=== PATIENT | female | born 1970 | race Caucasian/White ===

== ENCOUNTER 2020-06-13 13:13 | Emergency (ER) | payer OTHER ==
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
--- NOTE | 2020-06-14 07:45 | CT ---
Head CT Technique: Multiple axial sections through the brain were obtained. Intravenous contrast was not utilized. Reconstructed coronal and sagittal images were obtained. Comparison: No prior intracranial imaging is available. Findings: Ventricles along with basal cisterns and sulci over the convexities appear within normal limits for the patient's age. No abnormal parenchymal densities are seen. No evidence of intracranial hemorrhage. No midline shift or mass-effect is seen. Visualized paranasal sinuses and mastoid sinuses show nothing acute. Nondisplaced left sided occipital bone fracture is noted. Impression: 1. Nondisplaced occipital bone fracture. 2. No other acute abnormality is appreciated on noncontrast head CT exam. Diagnostic code #3 I disagree with preliminary report from [facility] (nondisplaced left occipital fracture), finalized on 06/13/20, 3:40 PM CDT
== END 2020-06-13 15:30 | disposition home or self-care (01) ==
LOC: JD.ED 13:13
DX: S09.90XA Unspecified injury of head, initial encounter (principal); Z91.048 Other nonmedicinal substance allergy status; V86.99XA Unspecified occupant of other special all-terrain or other off-road motor vehicle injured in nontraffic accident, initial encounter
CPT/HCPCS: 70450; 70450-26; 99284; 99284-25